=== PATIENT | female | born 1965 | race Asian ===

== ENCOUNTER 2021-08-04 09:27 | Outpatient (CLI) | payer OTHER ==
[2021-08-04 11:49] LABS: BASOPHILS % (AUTO) 0.6 %; EOSINOPHILS # (AUTO) 0.1 10^3/uL (0.0-0.7); EOSINOPHILS % (AUTO) 1.7 %; HCT - HEMATOCRIT 43.5 % (37.0-47.0); HGB - HEMOGLOBIN 14.4 g/dL (12.0-16.0); LYMPHOCYTES # (AUTO) 1.6 10^3/uL (1.5-3.5); LYMPHOCYTES % (AUTO) 45.4 %; MEAN CORPUSCULAR HEMOGLOBIN 31.4 pg (27.0-31.0); MEAN CORPUSCULAR HGB CONC 33.1 g/dL (32.0-36.0); MEAN PLATELET VOLUME 10.7 fL (7.9-10.8); MONOCYTES # (AUTO) 0.3 10^3/uL (0.0-1.0); NEUTROPHILS # (AUTO) 1.5 10^3/uL (1.5-6.6); PLT - PLATELET COUNT 251 10^3/uL (130-450); RED BLOOD COUNT 4.58 10^6/uL (4.20-5.40); WHITE BLOOD COUNT 3.5 x10^3/uL (4.8-10.8)
[2021-08-04 11:58] LABS: ALBUMIN 4.8 g/dL (3.2-5.5); ALBUMIN/GLOBULIN RATIO 1.7 (1.0-2.2); ALKALINE PHOSPHATASE 46 IU/L (42-121); ALT ALANINE AMINOTRANSFERASE 17 IU/L (10-60); AST ASPARTATE AMINOTRANSFERASE 18 IU/L (10-42); BUN - BLOOD UREA NITROGEN 15 mg/dL (6-20); CALCIUM 9.6 mg/dL (8.5-10.3); CARBON DIOXIDE - CO2 28 mmol/L (21-32); CHLORIDE 99 mmol/L (101-111); CHOL/HDL RATIO 2.3 (<4.4); CHOLESTEROL 269 mg/dL; CREATININE 0.7 mg/dL (0.4-1.0); GFR - MDRD 87 (>89); GLUCOSE 100 mg/dL (70-100); HDL CHOLESTEROL 117 mg/dL; LDL CHOLESTEROL,CALCULATED 140 mg/dL; LDL/HDL RATIO 1.2 (<4.4); POTASSIUM 4.2 mmol/L (3.5-5.0); SODIUM 136 mmol/L (135-145); TOTAL PROTEIN 7.6 g/dL (6.7-8.2); TRIGLYCERIDES 62 mg/dL; VLDL CHOLESTEROL 12 mg/dL
[2021-08-04 12:27] LABS: THYROID STIMULATING HORMONE 1.75 uIU/mL (0.34-5.60)
[2021-08-06 12:21] LABS: HEPATITIS C ANTIBODY NON-REACTIVE (NON-REACTIVE)
== END 2021-08-04 09:28 | disposition home or self-care (01) ==
LOC: LAB.N 09:27
PROVIDERS: ATTEND Registered Nurse
DX: Z00.00 Encounter for general adult medical examination without abnormal findings (principal); Z13.228 Encounter for screening for other metabolic disorders; Z13.220 Encounter for screening for lipoid disorders; Z13.29 Encounter for screening for other suspected endocrine disorder; Z13.0 Encounter for screening for diseases of the blood and blood-forming organs and certain disorders involving the immune mechanism
CPT/HCPCS: 36415; 80053; 80061; 83721; 84443; 85025; 86803

== ENCOUNTER 2021-10-17 08:00 | Outpatient (CLI) | payer OTHER ==
[2021-10-17 13:44] LABS: BASOPHILS % (AUTO) 0.6 %; EOSINOPHILS # (AUTO) 0.1 10^3/uL (0.0-0.7); EOSINOPHILS % (AUTO) 1.5 %; HCT - HEMATOCRIT 41.6 % (37.0-47.0); HGB - HEMOGLOBIN 13.7 g/dL (12.0-16.0); LYMPHOCYTES # (AUTO) 1.4 10^3/uL (1.5-3.5); LYMPHOCYTES % (AUTO) 42.2 %; MEAN CORPUSCULAR HEMOGLOBIN 31.1 pg (27.0-31.0); MEAN CORPUSCULAR HGB CONC 32.9 g/dL (32.0-36.0); MEAN CORPUSCULAR VOLUME 94.5 fL (81.0-99.0); MEAN PLATELET VOLUME 10.3 fL (7.9-10.8); MONOCYTES # (AUTO) 0.3 10^3/uL (0.0-1.0); NEUTROPHILS # (AUTO) 1.6 10^3/uL (1.5-6.6); NEUTROPHILS % (AUTO) 47.4 %; PLT - PLATELET COUNT 297 10^3/uL (130-450); RED CELL DISTRIBUTION WIDTH 11.9 % (12.0-15.0); WHITE BLOOD COUNT 3.4 x10^3/uL (4.8-10.8)
[2021-10-17 14:00] LABS: ALBUMIN 4.5 g/dL (3.2-5.5); ALBUMIN/GLOBULIN RATIO 1.8 (1.0-2.2); BILIRUBIN,TOTAL 0.9 mg/dL (0.2-1.0); CALCIUM 9.2 mg/dL (8.5-10.3); CREATININE 0.7 mg/dL (0.4-1.0); POTASSIUM 4.1 mmol/L (3.5-5.0)
== END 2021-10-17 23:59 | disposition home or self-care (01) ==
LOC: LAB.N 08:00
PROVIDERS: ATTEND Family Medicine
DX: R10.32 Left lower quadrant pain (principal)
CPT/HCPCS: 36415; 80053; 85025

== ENCOUNTER 2021-11-02 16:07 | Outpatient (CLI) | payer OTHER ==
--- NOTE | 2021-11-04 11:19 | Ultrasound Report ---
PROCEDURE: Pelvic w/Transvaginal INDICATIONS: LEFT LOWER QUAD ABD PAIN TECHNIQUE: Real-time scanning was performed of the pelvic organs, with image documentation. Additional endovagi nal scanning was necessary due to incomplete visualization of the adnexal and endometrial structures by transabdominal scanning. COMPARISON: None. FINDINGS: Limited scanning through the kidneys shows no hydronephrosis. No pathologic free abdominal or pelvic fluid. Uterus: Uterus is anteverted measuring 5.7 x 3.4 x 5.1 cm. The endometrium measures 2.3 mm in combi jaylene thickness. There are multiple uterine fibroids. There is a 2.3 x 2.2 x2.1 cm subserosal fibroid in the right lateral uterine wall. A 1.3 x 0.8 x 1.4 cm intramural fibroid is seen in the anterior uterine wall at midline. A 1.2 x 1.0 x 1.3 cm intramura l fibroid is seen in the left lateral uterine wall. There is a 0.9 x 0.8 x 1.0 cm subserosal fibroid in the posterior uterine wall at midline. Ovaries: Right ovary measures 1.2 x 0.9 x 1.1 cm with an estimated volume of 0.6 cc. Left ovary jose g ures 1.5 x 1.6 x 1.1 cm with an history volume of 1.4 cc. Cervix: Note is made of nabothian cysts. Bladder: Within normal. Other: No free pelvic fluid. IMPRESSION: 1. Multiple small uterine leiomyomas. 2. Normal ovaries. Reviewed by: Yeimi De Jesus MD on 11/04/2021 11:18 AM PDT Approved by: Yeimi De Jesus MD on 11/04/2021 11:18 AM PDT Station ID: [id number]
== END 2021-11-02 16:08 | disposition home or self-care (01) ==
LOC: DI 16:07
PROVIDERS: ATTEND Family Medicine
DX: D25.2 Subserosal leiomyoma of uterus (principal); D25.1 Intramural leiomyoma of uterus

== ENCOUNTER 2021-11-08 16:40 | Emergency (ER) | payer OTHER ==
--- NOTE | 2021-11-08 16:58 | ED Physician Documentation ---
PD HPI ABD PAIN - Stated complaint Stated Complaint: ABD PX - Chief complaint Chief Complaint: Abd Pain - History obtained from History obtained from: Patient - History of Present Illness Timing - onset: How many months ago (1) Timing - duration: Months (1) Timing - details: Intermittant Quality: Aching, Sharp, Pain Location: LLQ (and left inguinal area) Improved by: BM Worsened by: Moving (particularly heavier lifting or exercises such as weighted squats, running.), Palpation Associated symptoms: No: Fever, Nausea, Vomiting, Diarrhea, Constipation (not constipated per se, but had not had BM for 2 days and so took stoool softener yesterday with moderate BM today.), Melena, Dysuria, Loss of appetite Similar symptoms before: Has not had sx before Recently seen: Clinic (seen by primary care and had outpatient U/S pelvis, without abnormalities to account for the pain. Did have uterine fibroids. No adnexal abnormalities.) Review of Systems Constitutional: denies: Fever, Chills Nose: denies: Rhinorrhea / runny nose, Congestion Throat: denies: Sore throat Respiratory: denies: Cough GI: reports: Abdominal Pain (just the left inguinal area.). denies: Nausea, Vomiting : denies: Dysuria, Frequency, Hematuria, Discharge Skin: denies: Rash Musculoskeletal: denies: Back pain Neurologic: denies: Focal weakness, Numbness PD PAST MEDICAL HISTORY - Past Medical History Cardiovascular: None Respiratory: None Endocrine/Autoimmune: None - Allergies Allergies/Adverse Reactions: Allergies Allergy/AdvReac Type Severity Reaction Status Date / Time No Known Drug Allergies Allergy Verified 11/08/21 16:49 - Living Situation Living Situation: reports: With spouse/s.o. Living Arrangement: reports: At home, Other (she does exercise vigorously frequently through the week. No noted lumps at inguinal area with exercise. ) - Social History Does the pt smoke?: No Does the pt have substance abuse?: No PD ED PE NORMAL - Vitals Vital signs reviewed: Yes - General General: Alert and oriented X 3, No acute distress, Well developed/nourished (appears with good general muscle definition c/w strength training and exercise. ) - HEENT HEENT: Pharynx benign - Neck Neck: Supple, no meningeal sign, No adenopathy - Cardiac Cardiac: RRR, No murmur - Respiratory Respiratory: Clear bilaterally - Abdomen Abdomen: Normal bowel sounds, Soft, Non distended, No organomegaly, Other (left inguinal area with tenderness. No protrusions with abd tightening. No nodes nor masses. ) - Female Female : Deferred - Rectal Rectal: Deferred - Back Back: No CVA TTP - Derm Derm: Normal color, Warm and dry - Extremities Extremities: No tenderness to palpate, Normal ROM s pain - Neuro Neuro: Alert and oriented X 3, No motor deficit, No sensory deficit, Normal speech Results - Vitals Vitals: Vital Signs - 24 hr 11/08/21 11/08/21 16:49 18:53 Temperature 36.5 C Heart Rate 65 57 L Respiratory 16 14 Rate Blood Pressure 121/80 108/74 O2 Saturation 100 99 Oxygen O2 Source Room air - Labs Labs: Laboratory Tests 11/08/21 11/08/21 11/08/21 17:20 17:20 18:25 WBC 5.0 RBC 4.21 Hgb 13.4 Hct 39.2 MCV 93.1 MCH 31.8 H MCHC 34.2 RDW 11.8 L Plt Count 265 MPV 9.5 Neut # (Auto) 2.5 Lymph # (Auto) 2.1 [place] # (Auto) 0.3 Eos # (Auto) 0.1 Baso # (Auto) 0.0 Absolute Nucleated RBC 0.00 Nucleated RBC % 0.0 Sodium 138 Potassium 3.6 Chloride 102 Carbon Dioxide 26 Anion Gap 10.0 BUN 17 Creatinine 0.7 Estimated GFR (MDRD) 87 L Glucose 85 Calcium 9.1 Total Bilirubin 0.6 AST 18 ALT 17 Alkaline Phosphatase 43 Total Protein 7.1 Albumin 4.5 Globulin 2.6 Albumin/Globulin Ratio 1.7 Lipase 40 Urine Color YELLOW Urine Clarity CLEAR Urine pH 6.0 Ur Specific [place] <=1.005 Urine Protein NEGATIVE Urine Glucose (UA) NEGATIVE Urine Ketones NEGATIVE Urine Occult Blood NEGATIVE Urine Nitrite NEGATIVE Urine Bilirubin NEGATIVE Urine Urobilinogen 0.2 (NORMAL) Ur Leukocyte Esterase NEGATIVE Ur Microscopic Review NOT INDICATED Urine Culture Comments NOT INDICATED Urine HCG, Qual NEGATIVE - Rads (name of study) abd/pelvic CT Radiology: Prelim report reviewed (no acute process), See rad report PD MEDICAL DECISION MAKING - ED course Complexity details: reviewed results (normal labs/CT. presume inguinal canal strain, without hernia on exam. ), re-evaluated patient, considered differential (pain with tenderness at inguinal canal, without mass upon abd tightening. No inguinal hernia nor nodes felt. Tenderness is noted at inguinal canal area but also LLQ. ), d/w patient Departure - Departure Disposition: 01 Home, Self Care Clinical Impression: Left inguinal pain Ilio-inguinal strain Qualifiers: Encounter type: initial encounter Qualified Code(s): S39.011A - Strain of muscle, fascia and tendon of abdomen, initial encounter Condition: Stable Record reviewed to determine appropriate education?: Yes Instructions: ED Strain Groin Follow-Up: Titi Oro MD [Primary Care Provider] - Jass Arrington MD [Provider Admit Priv/Credential] - Comments: Your urine test, blood test, CT scan do not show any acute cause for the pain. Things that would not show on these tests would be likely muscular through the inguinal area (ilioinguinal groin strain). I would suggest light activity and mostly gliding such as walking or smooth stretches without big steps, and no squats or running that would put more strain on the inguinal ligaments. I would do this later activity for the next 7 to 10 days. In combination with this I would suggest regular anti-inflammatories such as naproxen [id number] tablets 2 tablets twice daily for the next 10 days. Ice or cool towels to the inguinal area after light activity or at the end of the day. Recheck with your primary or orthopedics if not improved over the next 7-10. Discharge Date/Time: 11/08/21 18:54
--- OUTSIDE RECORDS SUMMARY | 2021-11-08 16:59 | EXTERNAL MEDICAL SUMMARY RPT | Continuity of Care Document ---
:1965 Author Organization [facility] Address [address] [place] [address] Phone Care Team Providers Name Role Phone TANIA, Elsy Catherine Unavailable Unavailable Allergies No information. Encounters No information. Medications No information. Problems date description facility 20211017 US PELVIC/TRANSVAGINAL All 20211017 Left lower quadrant pain All 20211017 COMPREHENSIVE METABOLIC PANEL All 20211017 CBC W/Diff/Plt All 20211017 Abdominal pain, left lower quadrant Al l Procedures date description facility 20211017 CBC W/Diff/Plt All 20211017 POC HCG All 20211017 POC URINALYSIS DIP All 20211017 COMPREHENSIVE METABOLIC PANEL All Results test status date ordered by attending specimen joyce e urea_nitrogen_blood unknown 20211017 unknown unknown unk nown Erythrocytes_volume_in unknown 20211017 unknown unknown unknown _Blood_by_Automated_cou nt Erythrocyte_distributi unknown 20211017 unknown unknown unknown on_width_Ratio_by_Autom ated_count MCV_Entitic_volume_by_ unknown 12052858 unknown unknown unknown Automated_count MCH_Entitic_mass_by_Au unknown 31576196 unknown unknown unknown tomated_count Platelets_volume_in_Bl unknown 95389891 unknown unknown unknown ood_by_Automated_count Platelet_mean_volume_E unknown 41639719 unknown unknown unknown ntitic_volume_in_Blood_ by_ReeErin neutrophil_count_blood unknown 57268723 unknown unknown unknown monocyte_count_blood unknown 84166352 unknown unknown un known lymphocyte_count_blood unknown 73039421 unknown unknown unknown Hemoglobin_Mass_volume unknown 95761252 unknown unknown unknown _in_Blood eosinophil_count_blood unknown 18221082 unknown unknown unknown Basophils_volume_in_Bl unknown 26828587 unknown unknown unknown ood_by_Manual_count leukocyte_count_blood unknown 50731971 unknown unknown u nknown erythrocyte_RBC_count unknown 65649586 unknown unknown u nknown Leukocytes_volume_in_B unknown 40489892 unknown unknown unknown lood_by_Automated_count Glomerular_Filtration_ unknown 33620629 unknown unknown unknown rate platelet_count unknown 37458392 unknown unknown unknown hemoglobin_blood unknown 46540651 unknown unknown unknow n hematocrit_blood unknown 44068404 unknown unknown unknow n potassium_blood unknown 59859054 unknown unknown unknown Urobilinogen_Presence_ unknown 80041579 unknown unknown unknown in_Urine_by_Test_strip Specific_gravity_of_Ur unknown 16908249 unknown unknown unknown ine_by_Test_strip pH_of_Urine_by_Test_st unknown 72264102 unknown unknown unknown rip Nitrite_Presence_in_Ur unknown 90788082 unknown unknown unknown ine_by_Test_strip Leukocyte_esterase_Pre unknown 98750902 unknown unknown unknown sence_in_Urine_by_Test_ strip Ketones_Mass_volume_in unknown 87886757 unknown unknown unknown _Urine_by_Test_strip Glucose_Mass_volume_in unknown 94483806 unknown unknown unknown _Urine_by_Test_strip Color_of_Urine unknown 56019802 unknown unknown unknown Bilirubin.total_Presen unknown 81457883 unknown unknown unknown ce_in_Urine_by_Test_str ip Appearance_of_Urine unknown 09537492 unknown unknown unk nown Glomerular_filtration_r unknown 99953826 unknown unknown unknown ate_1.73_sq_M.predicted _among_non-blacks_Volum e_Rate_Area_in_Serum_Pl asma_or_Blood_by_Creati nine-based_formula_MDRD _ urinalysis_routine unknown 96169585 unknown unknown unkn own Hematocrit_Volume_Frac unknown 52204621 unknown unknown unknown tion_of_Blood_by_Automa ted_count bilirubin_serum_total unknown 91481659 unknown unknown u nknown alanine_aminotransfera unknown 53020880 unknown unknown unknown se_SGPT_serum carbon_dioxide_serum_t unknown 47571036 unknown unknown unknown otal aspartate_aminotransfe unknown 10416375 unknown unknown unknown rase_SGOT_serum protein_total_serum unknown 05311876 unknown unknown unk nown blood_glucose unknown 27857971 unknown unknown unknown potassium_blood unknown 81571780 unknown unknown unknown appearance_urine unknown 23999308 unknown unknown unknow n leukocyte_esterase_uri unknown 29005545 unknown unknown unknown ne_by_dipstick urobilinogen_urine_sem unknown 60243596 unknown unknown unknown iquantitative_dipstick_ specific_gravity_urine unknown 74787712 unknown unknown unknown pH_urine_semiquantitat unknown 68443968 unknown unknown unknown linh nitrite_urine_semiquan unknown 23169814 unknown unknown unknown titative ketones_urine_by_test_ unknown 84686521 unknown unknown unknown strip bilirubin_urine unknown 28694767 unknown unknown unknown mean_corpuscular_volum unknown 03674338 unknown unknown unknown e_RBC Urea_nitrogen_Mass_vol unknown 90298813 unknown unknown unknown ume_in_Serum_or_Plasma globulin_serum unknown 17722634 unknown unknown unknown alkaline_phosphatase_s unknown 89353784 unknown unknown unknown juan Sodium_Moles_volume_in unknown 74207557 unknown unknown unknown _Serum_or_Plasma Protein_Mass_volume_in unknown 67919144 unknown unknown unknown _Serum_or_Plasma eosinophil_count_blood unknown 58086565 unknown unknown unknown anion_gap_serum unknown 05088299 unknown unknown unknown mean_platelet_volume unknown 57980223 unknown unknown un known urine_color unknown 77699436 unknown unknown unknown human_chorionic_gonado unknown 87140319 unknown unknown unknown tropin_urine_qualitativ e_urine_pregnancy_test_ basophil_count_blood unknown 92401759 unknown unknown un known monocyte_count_blood unknown 67298830 unknown unknown un known lymphocyte_count_blood unknown 79772591 unknown unknown unknown neutrophil_count_blood unknown 86618922 unknown unknown unknown Glucose_Mass_volume_in unknown 04262711 unknown unknown unknown _Serum_or_Plasma Globulin_Mass_volume_i unknown 26937309 unknown unknown unknown n_Serum Creatinine_Mass_volume unknown 39025380 unknown unknown unknown _in_Serum_or_Plasma Choriogonadotropin_pre unknown 75097407 unknown unknown unknown gnancy_test_Presence_in _Urine Chloride_Moles_volume_ unknown 81263925 unknown unknown unknown in_Serum_or_Plasma carbon_dioxide_serum_t unknown 60193909 unknown unknown unknown otal Calcium_Moles_volume_i unknown 82556520 unknown unknown unknown n_Serum_or_Plasma albumin_serum unknown 65085321 unknown unknown unknown Bilirubin.total_Mass_v unknown 71922230 unknown unknown unknown olume_in_Serum_or_Plasm a Aspartate_aminotransfe unknown 15133727 unknown unknown unknown rase_Enzymatic_activity _volume_in_Serum_or_Pla sma Anion_gap_4_in_Serum_o unknown 91419947 unknown unknown unknown r_Plasma creatinine_serum unknown 65897828 unknown unknown unknow n Alkaline_phosphatase_E unknown 90591934 unknown unknown unknown nzymatic_activity_volum e_in_Blood Albumin_Globulin_Mass_ unknown 30354808 unknown unknown unknown Ratio_in_Serum_or_Plasm a Albumin_Presence_in_Ur unknown 37735289 unknown unknown unknown ine Albumin_Mass_volume_in unknown 43777225 unknown unknown unknown _Serum_or_Plasma Alanine_aminotransfera unknown 43368124 unknown unknown unknown se_Enzymatic_activity_v olume_in_Serum_or_Plasm a mean_corpuscular_hemog unknown 09993081 unknown unknown unknown lobin_concentration_rbc RBC_urine_dipstick unknown 68718373 unknown unknown unkn own sodium_serum unknown 57694992 unknown unknown unknown albumin_globulin_ratio unknown 11591980 unknown unknown unknown _serum Erythrocytes_area_in_U unknown 38433951 unknown unknown unknown rine_sediment_by_Micros copy_high_power_field chloride_serum unknown 47929844 unknown unknown unknown glucose_urine_semiquan unknown 47968838 unknown unknown unknown titative protein_urine_semiquan unknown 69146146 unknown unknown unknown titative_dipstick_ Urine_HCG_Exp_Date_CLI unknown 81590263 unknown unknown unknown A_Waived_ Urine_HCG_Lot_Number_C unknown 24669071 unknown unknown unknown LIA_Waived_ calcium_serum unknown 30028757 unknown unknown unknown mean_corpuscular_hemog unknown 53723838 unknown unknown unknown lobin_RBC red_blood_cell_distrib unknown 07039209 unknown unknown unknown ution_width DIPSTICK_URINE_STRIP_L unknown 79329562 unknown unknown unknown OT_NUMBER T unknown 99904367 unknown unknown unknown T unknown 99318593 unknown unknown unknown T unknown 84969127 unknown unknown unknown T unknown 79934392 unknown unknown unknown T unknown 45496228 unknown unknown unknown T unknown 42876952 unknown unknown unknown NEUTROPHILS_AUTO_ unknown 30274413 unknown unknown unkno wn T unknown 25200618 unknown unknown unknown T unknown 93033510 unknown unknown unknown T unknown 04560164 unknown unknown unknown MONOCYTES_AUTO_ unknown 95670279 unknown unknown unknown T unknown 32311180 unknown unknown unknown T unknown 30268711 unknown unknown unknown T unknown 80451969 unknown unknown unknown T unknown 87833781 unknown unknown unknown LYMPHOCYTES_AUTO_ unknown 88567942 unknown unknown unkno wn T unknown 31431963 unknown unknown unknown T unknown 76009549 unknown unknown unknown T unknown 45072281 unknown unknown unknown T unknown 98732465 unknown unknown unknown T unknown 02961260 unknown unknown unknown T unknown 86698688 unknown unknown unknown T unknown 81198832 unknown unknown unknown GFR_-_MDRD unknown 60049584 unknown unknown unknown T unknown 26642101 unknown unknown unknown EOSINOPHILS_AUTO_ unknown 83970373 unknown unknown unkno wn T unknown 39370475 unknown unknown unknown T unknown 71530575 unknown unknown unknown T unknown 03502011 unknown unknown unknown T unknown 84771769 unknown unknown unknown T unknown 58813408 unknown unknown unknown T unknown 21425765 unknown unknown unknown BILIRUBIN_TOTAL unknown 86110041 unknown unknown unknown BASOPHILS_AUTO_ unknown 89051213 unknown unknown unknown T unknown 07916466 unknown unknown unknown T unknown 93220631 unknown unknown unknown T unknown 94530416 unknown unknown unknown T unknown 27595365 unknown unknown unknown ALT_ALANINE_AMINOTRANS unknown 91427002 unknown unknown unknown FERASE ALKALINE_PHOSPHATASE unknown 80234972 unknown unknown un known T unknown 66033869 unknown unknown unknown T unknown 28073419 unknown unknown unknown ALBUMIN_GLOBULIN_RATIO unknown 43488357 unknown unknown unknown facility observation status value reference units lab abnor mal line range code notes All urea_nitroge unknown 17 unknown mg/dL _9 unknown unknown n_blood All Erythrocytes unknown 4.40 10 unknown _789-8 unknow n unknown _volume_in_Bl 6/UL ood_by_Automa ted_count All Erythrocyte_ unknown 11.9 unknown % _788-0 unknown unknown distribution_ width_Ratio_b y_Automated_c ount All MCV_Entitic_ unknown 94.5 unknown fL _787-2 unknown unknown volume_by_Aut omated_count All MCH_Entitic_ unknown 31.1 unknown pg _785-6 unknown unknown mass_by_Autom ated_count All Platelets_vo unknown 297 10 unknown _777-3 unknown unknown lume_in_Blood 3/UL _by_Automated _count All Platelet_mea unknown 10.3 unknown fL _776-5 unknown unknown n_volume_Enti tic_volume_in _Blood_by_Ree s-[place] All neutrophil_c unknown 1.6 10 unknown _752-6 unknown unknown ount_blood 3/UL All monocyte_cou unknown 0.3 10 unknown _743-5 unknown unknown nt_blood 3/UL All lymphocyte_c unknown 1.4 10 unknown _732-8 unknown unknown ount_blood 3/UL All Hemoglobin_M unknown 13.7 unknown g/dL _718-7 unknown unknown ass_volume_in _Blood All eosinophil_c unknown 0.1 10 unknown _712-0 unknown unknown ount_blood 3/UL All Basophils_vo unknown 0.0 10 unknown _705-4 unknown unknown lume_in_Blood 3/UL _by_Manual_co unt All leukocyte_co unknown 3.4 X10 unknown _68 unknow n unknown unt_blood 3/UL All erythrocyte_ unknown 4.40 10 unknown _67 unknow n unknown RBC_count 6/UL All Leukocytes_v unknown 3.4 X10 unknown _6690-2 unkno wn unknown olume_in_Bloo 3/UL d_by_Automate d_count All Glomerular_F unknown 87 unknown mL/min _66455 unknown unknown iltration_rat e All platelet_cou unknown 297 10 unknown _66 unknown unknown nt 3/UL All hemoglobin_b unknown 13.7 unknown g/dL _65 unknown unknown lood All hematocrit_b unknown 41.6 unknown % _64 unknown unknown lood All potassium_bl unknown 4.1 unknown meq/L _6298-4 unknow n unknown ood All Urobilinogen unknown negative unknown _5818-0 unkn own unknown _Presence_in_ Urine_by_Test _strip All Specific_gra unknown 1.010 unknown _5811-5 unknow n unknown vity_of_Urine _by_Test_stri p All pH_of_Urine_ unknown 6.5 unknown _5803-2 unknow n unknown by_Test_strip All Nitrite_Pres unknown negative unknown _5802-4 unkn own unknown ence_in_Urine _by_Test_stri p All Leukocyte_es unknown negative unknown _5799-2 unkn own unknown terase_Presen ce_in_Urine_b y_Test_strip All Ketones_Mass unknown negative unknown _5797-6 unkn own unknown _volume_in_Ur ine_by_Test_s trip All Glucose_Mass unknown negative unknown _5792-7 unkn own unknown _volume_in_Ur ine_by_Test_s trip All Color_of_Uri unknown yellow unknown _5778-6 unknow n unknown ne All Bilirubin.to unknown negative unknown _5770-3 unkn own unknown tal_Presence_ in_Urine_by_T est_strip All Appearance_o unknown clear unknown _5767-9 unknow n unknown f_Urine All Glomerular_fi unknown 87 unknown mL/min _48642- unknow n unknown ltration_rate 3 _1.73_sq_M.pr edicted_among _non-blacks_V olume_Rate_Ar ea_in_Serum_P lasma_or_Bloo d_by_Creatini ne-based_form ula_MDRD_ All urinalysis_r unknown Clean unknown _47 unknown unknown outine Catch All Hematocrit_V unknown 41.6 unknown % _4544-3 unknow n unknown olume_Fractio n_of_Blood_by _Automated_co unt All bilirubin_se unknown 0.9 unknown mg/dL _43 unknown unknown rum_total All alanine_amin unknown 25 unknown U/L _40 unknown unknown otransferase_ SGPT_serum All carbon_dioxi unknown 28 unknown mmol/L _3962 unknown unknown de_serum_tota l All aspartate_am unknown 22 unknown U/L _39 unknown unknown inotransferas e_SGOT_serum All protein_tota unknown 7.0 unknown g/dL _36 unknown unknown l_serum All blood_glucos unknown 89 unknown mg/dL _3565 unknown unknown e All potassium_bl unknown 4.1 unknown meq/L _3483 unknown unknown ood All appearance_u unknown clear unknown _328 unknown unknown rine All leukocyte_es unknown negative unknown _327 unkno wn unknown terase_urine_ by_dipstick All urobilinogen unknown negative unknown _326 unkno wn unknown _urine_semiqu antitative_di pstick_ All specific_gra unknown 1.010 unknown _325 unknown unknown vity_urine All pH_urine_sem unknown 6.5 unknown _324 unknown unknown iquantitative All nitrite_urin unknown negative unknown _323 unkno wn unknown e_semiquantit ative All ketones_urin unknown negative unknown _322 unkno wn unknown e_by_test_str ip All bilirubin_ur unknown negative unknown _319 unkno wn unknown ine All mean_corpusc unknown 94.5 unknown fL _315 unknown unknown ular_volume_R BC All Urea_nitroge unknown 17 unknown mg/dL _3094-0 unknow n unknown n_Mass_volume _in_Serum_or_ Plasma All globulin_ser unknown 2.5 unknown _3059 unknown unknown um All alkaline_pho unknown 42 unknown U/L _3 unknown unknown sphatase_seru m All Sodium_Moles unknown 139 unknown mmol/L _2951-2 unknow n unknown _volume_in_Se rum_or_Plasma All Protein_Mass unknown 7.0 unknown g/dL _2885-2 unknow n unknown _volume_in_Se rum_or_Plasma All eosinophil_c unknown 0.1 10 unknown _285 unknown unknown ount_blood 3/UL All anion_gap_se unknown 8.0 unknown _279 unknown unknown rum All mean_platele unknown 10.3 unknown fL _2784 unknown unknown t_volume All urine_color unknown yellow unknown _2751 unknown unknown All human_chorio unknown Negative unknown _2578 unkno wn unknown nic_gonadotro pin_urine_qua litative_urin e_pregnancy_t est_ All basophil_cou unknown 0.0 10 unknown _2427 unknown unknown nt_blood 3/UL All monocyte_cou unknown 0.3 10 unknown _2422 unknown unknown nt_blood 3/UL All lymphocyte_c unknown 1.4 10 unknown _2420 unknown unknown ount_blood 3/UL All neutrophil_c unknown 1.6 10 unknown _2418 unknown unknown ount_blood 3/UL All Glucose_Mass unknown 89 unknown mg/dL _2345-7 unknow n unknown _volume_in_Se rum_or_Plasma All Globulin_Mas unknown 2.5 unknown _2336-6 unknow n unknown s_volume_in_S juan All Creatinine_M unknown 0.7 unknown mg/dL _2160-0 unknow n unknown ass_volume_in _Serum_or_Pla sma All Choriogonado unknown Negative unknown _6-3 unkn own unknown tropin_pregna ncy_test_Pres ence_in_Urine All Chloride_Mol unknown 103 unknown mmol/L _2074-0 unknow n unknown es_volume_in_ Serum_or_Plas ma All carbon_dioxi unknown 28 unknown mmol/L _2027- unknow n unknown de_serum_tota l All Calcium_Mole unknown 9.2 unknown mg/dL _1999- unknow n unknown s_volume_in_S erum_or_Plasm a All albumin_seru unknown 4.5 unknown g/dL _2 unknown unknown m All Bilirubin.to unknown 0.9 unknown mg/dL _1974- unknow n unknown tal_Mass_volu me_in_Serum_o r_Plasma All Aspartate_am unknown 22 unknown U/L _1919-8 unknow n unknown inotransferas e_Enzymatic_a ctivity_volum e_in_Serum_or _Plasma All Anion_gap_4_ unknown 8.0 unknown _1863-0 unknow n unknown in_Serum_or_P lasma All creatinine_s unknown 0.7 unknown mg/dL _18 unknown unknown juan All Alkaline_pho unknown 42 unknown U/L _1783-0 unknow n unknown sphatase_Enzy matic_activit y_volume_in_B lood All Albumin_Glob unknown 1.8 unknown _1759-0 unknow n unknown ulin_Mass_Rat io_in_Serum_o r_Plasma All Albumin_Pres unknown negative unknown _1753-3 unkn own unknown ence_in_Urine All Albumin_Mass unknown 4.5 unknown g/dL _1751-7 unknow n unknown _volume_in_Se rum_or_Plasma All Alanine_amin unknown 25 unknown U/L _1742-6 unknow n unknown otransferase_ Enzymatic_act ivity_volume_ in_Serum_or_P lasma All mean_corpusc unknown 32.9 unknown g/dL _17029 unknown unknown ular_hemoglob in_concentrat ion_rbc All RBC_urine_di unknown non-hemol unknown _170000 unk nown unknown pstick yzed trace 5 All sodium_serum unknown 139 unknown mmol/L _159 unknown unknown All albumin_glob unknown 1.8 unknown _146 unknown unknown ulin_ratio_se rum All Erythrocytes unknown non-hemol unknown _13945- unk nown unknown _area_in_Urin yzed trace 1 e_sediment_by _Microscopy_h igh_power_fie ld All chloride_ser unknown 103 unknown mmol/L _13 unknown unknown um All glucose_urin unknown negative unknown _123 unkno wn unknown e_semiquantit ative All protein_urin unknown negative unknown _118 unkno wn unknown e_semiquantit ative_dipstic k_ All Urine_HCG_Ex unknown 09/07/22 unknown _114941 unkno wn unknown p_Date_CLIA_W aived_ All Urine_HCG_Lo unknown 6057162 unknown _114940 unkno wn unknown t_Number_CLIA _Waived_ All calcium_seru unknown 9.2 unknown mg/dL _11 unknown unknown m All mean_corpusc unknown 31.1 unknown pg _1031 unknown unknown ular_hemoglob in_RBC All red_blood_ce unknown 11.9 unknown % _1030 unknown unknown ll_distributi on_width All DIPSTICK_URI unknown 444037 unknown _101400 unknow n unknown NE_STRIP_LOT_ NUMBER All T unknown 3.4 X10 unknown WBC unknown unk nown 3/UL All T unknown 0.9 unknown mg/dL TOTAL_B unknown unk nown ROSE All T unknown 11.9 unknown % RDW unknown unkn own All T unknown 4.40 10 unknown RBC unknown unk nown 6/UL All T unknown 7.0 unknown g/dL PRO_TOT unknown unk nown AL All T unknown 297 10 unknown PLT unknown unkn own 3/UL All NEUTROPHILS_ unknown 1.6 10 unknown NE_ unknown unknown AUTO_ 3/UL All T unknown 1.6 10 unknown NEUT_AU unknown unk nown 3/UL TO_ All T unknown 139 unknown mmol/L NA unknown unkn own All T unknown 10.3 unknown fL MPV unknown unkn own All MONOCYTES_AU unknown 0.3 10 unknown MO_ unknown unknown TO_ 3/UL All T unknown 0.3 10 unknown MONO_AU unknown unk nown 3/UL TO_ All T unknown 94.5 unknown fL MCV unknown unkn own All T unknown 32.9 unknown g/dL MCHC unknown unkn own All T unknown 31.1 unknown pg MCH unknown unkn own All LYMPHOCYTES_ unknown 1.4 10 unknown LY_ unknown unknown AUTO_ 3/UL All T unknown 1.4 10 unknown LYMPH_A unknown unk nown 3/UL UTO_ All T unknown 4.1 unknown meq/L K unknown unkn own All T unknown 13.7 unknown g/dL HGB unknown unkn own All T unknown 41.6 unknown % HCT unknown unkn own All T unknown 89 unknown mg/dL GLU unknown unkn own All T unknown 2.5 unknown GLOB unknown unkn own All T unknown 87 unknown mL/min GFR_-_M unknown unk nown DRD All GFR_-_MDRD unknown 87 unknown mL/min GFR unknown unknown All T unknown 8.0 unknown GAP unknown unkn own All EOSINOPHILS_ unknown 0.1 10 unknown EO_ unknown unknown AUTO_ 3/UL All T unknown 0.1 10 unknown EOS_AUT unknown unk nown 3/UL O_ All T unknown 0.7 unknown mg/dL CREAT unknown unkn own All T unknown 28 unknown mmol/L CO2 unknown unkn own All T unknown 103 unknown mmol/L CL unknown unkn own All T unknown 9.2 unknown mg/dL CA unknown unkn own All T unknown 17 unknown mg/dL BUN unknown unkn own All BILIRUBIN_TO unknown 0.9 unknown mg/dL BILIT unknown unknown NESHA All BASOPHILS_AU unknown 0.0 10 unknown BA_ unknown unknown TO_ 3/UL All T unknown 0.0 10 unknown BASO_AU unknown unk nown 3/UL TO_ All T unknown 1.8 unknown A_G_RAT unknown unk nown IO All T unknown 22 unknown U/L AST unknown unkn own All T unknown 25 unknown U/L ALT_SGP unknown unk nown T_ All ALT_ALANINE_ unknown 25 unknown U/L ALT unknown unknown AMINOTRANSFER ASE All ALKALINE_PHO unknown 42 unknown U/L ALP unknown unknown SPHATASE All T unknown 42 unknown U/L ALK_PHO unknown unk nown S All T unknown 4.5 unknown g/dL ALB unknown unkn own All ALBUMIN_GLOB unknown 1.8 unknown AGRATIO unknow n unknown ULIN_RATIO Vital Signs date measurement value source 20211017 weight_standard 134.4 lb 20211017 weight_metric 60.96 kg 20211017 temperature_standard 98 F 20211017 temperature_metric 36.67 C 20211017 respiration_rate 16 /min 20211017 height_standard 64 in 20211017 height_metric 162.56 cm 20211017 heart_rate 60 /min 20211017 BP_systolic 120 mm[Hg] 20211017 BP_diastolic 80 mm[Hg] 20211017 BMI 23.15 kg/m2
[2021-11-08] MEDS ORDERED: SODIUM CHLORIDE 0.9% 1,000 ML IV STA (17:10)
[2021-11-08] MEDS ORDERED: KETOROLAC 15 MG/ML VIAL IVP STA (17:10)
[2021-11-08] MEDS ORDERED: IOPAMIDOL-300 100 ML VIAL ONE (17:24)
[2021-11-08 17:26] LABS: BASOPHILS % (AUTO) 0.4 %; EOSINOPHILS # (AUTO) 0.1 10^3/uL (0.0-0.7); EOSINOPHILS % (AUTO) 1.8 %; HCT - HEMATOCRIT 39.2 % (37.0-47.0); HGB - HEMOGLOBIN 13.4 g/dL (12.0-16.0); LYMPHOCYTES # (AUTO) 2.1 10^3/uL (1.5-3.5); LYMPHOCYTES % (AUTO) 41.5 %; MEAN CORPUSCULAR HEMOGLOBIN 31.8 pg (27.0-31.0); MEAN CORPUSCULAR HGB CONC 34.2 g/dL (32.0-36.0); MEAN CORPUSCULAR VOLUME 93.1 fL (81.0-99.0); MEAN PLATELET VOLUME 9.5 fL (7.9-10.8); MONOCYTES # (AUTO) 0.3 10^3/uL (0.0-1.0); MONOCYTES % (AUTO) 6.4 %; NEUTROPHILS # (AUTO) 2.5 10^3/uL (1.5-6.6); NEUTROPHILS % (AUTO) 49.7 %; PLT - PLATELET COUNT 265 10^3/uL (130-450); RED BLOOD COUNT 4.21 10^6/uL (4.20-5.40); RED CELL DISTRIBUTION WIDTH 11.8 % (12.0-15.0)
[2021-11-08 17:39] LABS: ALBUMIN 4.5 g/dL (3.2-5.5); ALBUMIN/GLOBULIN RATIO 1.7 (1.0-2.2); BILIRUBIN,TOTAL 0.6 mg/dL (0.2-1.0); CALCIUM 9.1 mg/dL (8.5-10.3); CREATININE 0.7 mg/dL (0.4-1.0); POTASSIUM 3.6 mmol/L (3.5-5.0); TOTAL PROTEIN 7.1 g/dL (6.7-8.2)
[2021-11-08] MEDS ORDERED: IOPAMIDOL-300 100 ML VIAL IVP ONE (18:16)
--- NOTE | 2021-11-08 18:24 | CT Report ---
PROCEDURE: Abdomen/Pelvis W INDICATIONS: LLQ/inguinal pain for 3-4 weeks, worse CONTRAST: IV CONTRAST: Isovue 300 ml: 100 PO CONTRAST: *NO PO CONTRAST TECHNIQUE: After the administration of IV contrast, 5 mm thick sections acquired from the diaphragms to the symp hysis. 5 mm thick coronal and sagittal reformats were acquired. For radiation dose reduction, the f ollowing was used: automated exposure control, adjustment of mA and/or kV according to patient size. COMPARISON: Ultrasound dated 11/02/2021 FINDINGS: Image quality: Excellent. ABDOMEN: Lung bases: Lung bases are clear. Heart size is normal. Solid organs: Liver and spleen are normal in size and enhancement. Gallbladder is contracted Bilia ry system is non dilated. Pancreas enhances normally. No adrenal nodules. Kidneys demonstrate norm al size and enhancement, without hydronephrosis. Nonobstructing 2 mm calcification within the left i nterpolar kidney. Peritoneum and bowel: Bowel loops demonstrate normal wall thickness and caliber. No free fluid or a ir. Normal appendix. Nodes and vessels: No retroperitoneal or mesenteric adenopathy by size criteria. Aorta and inferior vena cava are normal in size. Miscellaneous: No ventral hernias. PELVIS: Genitourinary: Bladder wall thickness is normal. Miscellaneous: No inguinal hernias or adenopathy. Bones: No suspicious bony lesions. No vertebral body compression fractures. IMPRESSION: 1. No acute process. 2. Nonobstructing small left renal calcification. 3. Normal appendix. Reviewed by: Demetrice Mireles MD on 11/08/2021 6:23 PM PDT Approved by: Demetrice Mireles MD on 11/08/2021 6:23 PM PDT Station ID: [id number]
[2021-11-08 18:32] LABS: BILIRUBIN,URINE NEGATIVE (NEGATIVE); GLUCOSE, URINE (UA) NEGATIVE (NEGATIVE); KETONES,URINE (UA) NEGATIVE (NEGATIVE); LEUKOCYTE ESTERASE, URINE NEGATIVE (NEGATIVE); NITRITE,URINE NEGATIVE (NEGATIVE); OCCULT BLOOD,URINE NEGATIVE (NEGATIVE); PROTEIN,URINE NEGATIVE (NEGATIVE); UROBILINOGEN,URINE 0.2 (NORMAL) E.U./dL (NORMAL)
[2021-11-08 18:34] LABS: CLARITY,URINE CLEAR (CLEAR); HCG UR QUAL NEGATIVE
[2021-11-08 18:53] VITALS: BP 108/74
== END 2021-11-08 18:54 | disposition home or self-care (01) ==
LOC: ED 16:40
DX: S39.011A Strain of muscle, fascia and tendon of abdomen, initial encounter (principal); X58.XXXA Exposure to other specified factors, initial encounter
CPT/HCPCS: 36415; 74177; 80053; 81003; 81025; 83690; 85025; 96374; 99282; 99284; Q9967; 81001; 87086

== ENCOUNTER 2022-12-07 13:22 | Outpatient (CLI) | payer OTHER ==
[2022-12-07 17:54] LABS: BASOPHILS % (AUTO) 0.6 %; EOSINOPHILS # (AUTO) 0.1 10^3/uL (0.0-0.7); EOSINOPHILS % (AUTO) 2.6 %; HCT - HEMATOCRIT 42.1 % (37.0-47.0); HGB - HEMOGLOBIN 13.7 g/dL (12.0-16.0); LYMPHOCYTES % (AUTO) 57.2 %; MEAN CORPUSCULAR HEMOGLOBIN 31.6 pg (27.0-31.0); MEAN CORPUSCULAR HGB CONC 32.5 g/dL (32.0-36.0); MEAN CORPUSCULAR VOLUME 97.2 fL (81.0-99.0); MEAN PLATELET VOLUME 10.8 fL (7.9-10.8); MONOCYTES # (AUTO) 0.3 10^3/uL (0.0-1.0); MONOCYTES % (AUTO) 8.1 %; NEUTROPHILS # (AUTO) 1.1 10^3/uL (1.5-6.6); NEUTROPHILS % (AUTO) 31.2 %; PLT - PLATELET COUNT 277 10^3/uL (130-450); RED BLOOD COUNT 4.33 10^6/uL (4.20-5.40); RED CELL DISTRIBUTION WIDTH 13.1 % (12.0-15.0); WHITE BLOOD COUNT 3.5 x10^3/uL (4.8-10.8)
[2022-12-07 18:19] LABS: ALBUMIN 4.6 g/dL (3.2-5.5); ALBUMIN/GLOBULIN RATIO 1.7 (1.0-2.2); ALKALINE PHOSPHATASE 46 IU/L (42-121); ALT ALANINE AMINOTRANSFERASE 27 IU/L (10-60); AST ASPARTATE AMINOTRANSFERASE 25 IU/L (10-42); BILIRUBIN,TOTAL 0.9 mg/dL (0.2-1.0); BUN - BLOOD UREA NITROGEN 10 mg/dL (6-20); CALCIUM 9.6 mg/dL (8.5-10.3); CARBON DIOXIDE - CO2 30 mmol/L (21-32); CHLORIDE 104 mmol/L (101-111); CHOL/HDL RATIO 1.9 (<4.4); CHOLESTEROL 230 mg/dL; CREATININE 0.8 mg/dL (0.4-1.0); GFR - MDRD 74 (>89); GLUCOSE 102 mg/dL (70-100); HDL CHOLESTEROL 122 mg/dL; POTASSIUM 4.3 mmol/L (3.5-5.0); SODIUM 142 mmol/L (135-145); TOTAL PROTEIN 7.3 g/dL (6.7-8.2); TRIGLYCERIDES 33 mg/dL
== END 2022-12-07 13:23 | disposition home or self-care (01) ==
LOC: LAB.N 13:22
PROVIDERS: ATTEND Nurse Practitioner
DX: Z00.00 Encounter for general adult medical examination without abnormal findings (principal); Z13.89 Encounter for screening for other disorder; Z13.220 Encounter for screening for lipoid disorders
CPT/HCPCS: 36415; 80053; 80061; 83721; 85025

== ENCOUNTER 2022-12-27 10:44 | Outpatient (CLI) | payer OTHER ==
--- NOTE | 2023-01-03 09:52 | Mammography Report ---
BILATERAL DIGITAL SCREENING MAMMOGRAM 3D/2D: 12/27/2022 CLINICAL: Routine screening. No prior exams were available for comparison. Both breasts are extremely dense, which lowers the sensitivity of mammography (category d />75% gland ular tissue). No significant masses, calcifications, or other findings are seen in either breast. IMPRESSION: NEGATIVE There is no mammographic evidence of malignancy. A 1 year screening mammogram is recommended. Based on Tyrer-Cuzick model (a risk assessment model), the patient's lifetime risk is 25.2% and her 1 0 year risk is 8.2%. If a patient has an elevated risk, a more comprehensive evaluation should be con sidered and/or a referral to a genetic counselor. The [place] [employer], [employer] [employer], and NCCN Guidelines advise the consideration of Breast MRI as an adjunct to screening mammog philip in patients whose "Lifetime risk to develop breast cancer" is 20% or higher. This exam was interpreted at Station ID: [id number]. NOTE: For mammograms, a report in lay terms will be sent to the patient. Approximately 15% of breast malignancies will not be visualized mammographically. In the management of a palpable breast mass, a negative mammogram must not discourage biopsy of a clinically suspicious lesion. Electronically Signed By: Markus iqbal/nakia:12/31/2022 17:23:21 letter sent: No_Letter ACR BI-RADS Category 1: Negative 3341F PARENCHYMAL PATTERN: (VD) - The breast(s) demonstrate(s) extremely dense parenchyma, limiting the sen sitivity of mammography. BI-RADS CATEGORY: (1) - 1 Mammogram [id number] 1 year screening LATERALITY: (B)
== END 2022-12-27 10:45 | disposition home or self-care (01) ==
LOC: DI.N 10:44
PROVIDERS: ATTEND Nurse Practitioner
DX: Z12.31 Encounter for screening mammogram for malignant neoplasm of breast (principal)

== ENCOUNTER 2023-09-19 10:20 | Outpatient (CLI) | payer OTHER ==
[2023-09-19 10:37] LABS: BASOPHILS % (AUTO) 0.3 %; EOSINOPHILS # (AUTO) 0.1 10^3/uL (0.0-0.7); EOSINOPHILS % (AUTO) 1.3 %; HCT - HEMATOCRIT 42.7 % (37.0-47.0); HGB - HEMOGLOBIN 13.9 g/dL (12.0-16.0); LYMPHOCYTES # (AUTO) 1.6 10^3/uL (1.5-3.5); LYMPHOCYTES % (AUTO) 25.6 %; MEAN CORPUSCULAR HEMOGLOBIN 31.2 pg (27.0-31.0); MEAN CORPUSCULAR HGB CONC 32.6 g/dL (32.0-36.0); MEAN CORPUSCULAR VOLUME 95.7 fL (81.0-99.0); MEAN PLATELET VOLUME 9.6 fL (7.9-10.8); MONOCYTES # (AUTO) 0.4 10^3/uL (0.0-1.0); MONOCYTES % (AUTO) 5.8 %; NEUTROPHILS # (AUTO) 4.1 10^3/uL (1.5-6.6); NEUTROPHILS % (AUTO) 66.7 %; PLT - PLATELET COUNT 256 10^3/uL (130-450); RED BLOOD COUNT 4.46 10^6/uL (4.20-5.40); RED CELL DISTRIBUTION WIDTH 12.1 % (12.0-15.0); WHITE BLOOD COUNT 6.2 x10^3/uL (4.8-10.8)
[2023-09-19 10:51] LABS: ALBUMIN 4.7 g/dL (3.2-5.5); ALBUMIN/GLOBULIN RATIO 1.7 (1.0-2.2); ALKALINE PHOSPHATASE 47 IU/L (42-121); ALT ALANINE AMINOTRANSFERASE 12 IU/L (10-60); AST ASPARTATE AMINOTRANSFERASE 16 IU/L (10-42); BILIRUBIN,TOTAL 0.8 mg/dL (0.2-1.0); BUN - BLOOD UREA NITROGEN 13 mg/dL (6-20); CALCIUM 9.7 mg/dL (8.5-10.3); CARBON DIOXIDE - CO2 29 mmol/L (21-32); CHLORIDE 100 mmol/L (101-111); CREATININE 0.8 mg/dL (0.6-1.3); CRP - C-REACTIVE PROTEIN < 0.5 mg/dL (<0.5); GFR - MDRD 74 (>89); GLUCOSE 105 mg/dL (74-104); POTASSIUM 3.9 mmol/L (3.5-4.5); SODIUM 134 mmol/L (135-145); TOTAL PROTEIN 7.4 g/dL (6.4-8.9)
[2023-09-19 11:08] LABS: THYROID STIMULATING HORMONE 1.73 uIU/mL (0.34-5.60)
--- NOTE | 2023-09-19 11:28 | XRAY Report ---
PROCEDURE: Foot 1-2V LT INDICATIONS: LEFT FOOT PAIN TECHNIQUE: 2 views of the foot were acquired. COMPARISON: None. FINDINGS: Bones: No displaced fracture or dislocation. Possible mild posterior facet subtalar degenerative jonas ges. Soft tissues: No suspicious calcifications. IMPRESSION: No acute radiographic abnormality. If there is high concern for further derangement, consider MRI luis luation. Reviewed by: Frederick Swift MD on 09/19/2023 11:27 AM PDT Approved by: Frederick Swift MD on 09/19/2023 11:27 AM PDT Station ID: [id number]
== END 2023-09-19 10:21 | disposition home or self-care (01) ==
LOC: DI 10:20
PROVIDERS: ATTEND Nurse Practitioner
DX: M79.672 Pain in left foot (principal); R53.83 Other fatigue
CPT/HCPCS: 36415; 80053; 82607; 84439; 84443; 85025; 85651; 86140

== ENCOUNTER 2023-11-02 13:31 | Outpatient (CLI) | payer OTHER ==
--- NOTE | 2023-11-02 16:51 | XRAY Report ---
PROCEDURE: Chest 2V INDICATIONS: ACUTE COUGH TECHNIQUE: 2 views of the chest were acquired. COMPARISON: None. FINDINGS: Surgical changes and devices: None. Lungs and pleura: No pleural effusions or pneumothorax. Lungs are clear. Mediastinum: Mediastinal contours appear normal. Heart size is normal. Bones and chest wall: No suspicious bony lesions. Overlying soft tissues appear unremarkable. IMPRESSION: No acute cardiopulmonary process. Reviewed by: Bhargav Perez MD on 11/02/2023 4:49 PM PDT Approved by: Bhargav Perez MD on 11/02/2023 4:49 PM PDT Station ID: [id number]
== END 2023-11-02 13:32 | disposition home or self-care (01) ==
LOC: DI 13:31
PROVIDERS: ATTEND Physician Assistant Medical
DX: R05.1 Acute cough (principal)

== ENCOUNTER 2023-12-01 15:48 | Outpatient (CLI) | payer OTHER ==
--- NOTE | 2023-12-01 16:38 | Sleep Patient Instructions ---
Sleep Center Visit Summary - Patient Visit Information Reason for Visit: Initial consult for evaluation of sleep disordered breathing and other sleep issues. - Patient Instructions Instructions Attached: Sleep Study Home Monitor, Sleep Study Additional Instructions: You will be completing a sleep study, either an in-lab polysomnography (PSG) or home sleep study (HST). You will follow-up in the sleep care office after the sleep study is completed to hear the results and talk about therapy, if needed. You will be called by our office staff to schedule this appointment, but you may contact us with any questions. - Clinic Information Contact: [facility] [address] [place] [id number] [email or web address] T: [phone]
--- NOTE | 2023-12-01 16:43 | SLEEP CARE CONSULTATION ---
Information from patient questionnaire entered by Niyah Sal. I have reviewed and concur with the information entered by Niyah Sal. This document represents the service I personally performed and the decisions made by me, Mayra Escobar ARNP. History of Present Illness Service Date and Time: 12/01/2023 1548 Reason for Visit: New patient Chief Complaint: reports: Snoring, Fatigue, Other (reduced energy) Date of Onset: A FEW YRS Usual bedtime: 2200 Time it takes to fall asleep: NOT LONG Snores at night: Yes Observed to quit breathing while asleep: Yes Sleeps alone due to snoring: No Number of times waking at night: 0-1 Reasons for waking at night: reports: Snoring, Bathroom. denies: Choking, Gasping for air Toss, Turn, or Twitch while sleeping: Yes Recalls having dreams: No (rarely) Usually gets out of bed at: 0600 Feels refreshed in the morning: No Morning headache: No Sleepy or fatigued during the day: Yes Ever fallen asleep while driving: Yes (drowsy driving, no accidents) Takes day naps: Yes (daily for 15 minutes after lunch) Dreams during day naps: No Prior sleep studies: No Additional HPI information: I had the pleasure of seeing JOCELIN BURCH today regarding the possibility of her having a sleep disorder. Her current complaints are snoring, observed pauses in breathing, fatigue and unrefreshed sleep. She says since going through menopause she has been a lot more fatigued and sleepy during the day. She maintains a healthy weight and is using intermittent fasting. She says she feels a little more energy since using the intermittent fasting that she started in September. She says she knows she snores loudly and her will tell her he cannot hear her snoring from across the house. She also says he has told her that she stops breathing when sleeping. She will wake herself up from her own snoring. She does not wake up feeling refreshed. She says her mother has sleep apnea and is on a PAP machine. 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 Patient is and lives in . Have you smoked in the past 12 months: No Cigarettes per day (20/pack): 20 Years of smokin Quit date: 1994 Smoking Pack Years: 6.0 Alcohol use: Yes Alcohol amount and frequency: 2 GLASSES EVERYDAY Caffeine use: Yes Caffeine amount and frequency: 2 CUPS EVERYDAY Family History Family history of sleep disordered breathing: Yes Family Hx Sleep Apnea: Mother: Snoring, Sleep apnea - Treated Allergies and Home Medications Known drug allergies: No Drug allergies reviewed: Yes Home medication list reviewed: Yes (as listed) Allergy and home medication list: Allergies No Known Drug Allergies Allergy (Verified 11/28/23 14:53) Home Medications Medication Instructions Recorded Confirmed Last Taken Type Magnesium See Rx Instructions .ROUTE .COMPLEX 12/01/23 Unknown History Review of Systems Cardiovascular: denies: high blood pressure Gastrointestinal: reports: heartburn Neurological: denies: head trauma Ear/Nose/Throat: denies: injury to nose, tonsillectomy Musculoskeletal: reports: back pain Physical Exam Vital signs obtained and entered by: NIYAH Mabry MA Blood Pressure: 117/76 (RIGHT ARM) Cuff size: regular Heart Rate: 67 O2 Saturation: 100 Height: 5 ft 4 in Weight: 129 lb Body Mass Index: 22.1 BMI Classification: Normal Neck circumference: 13 Mouth and throat: narrow oropharynx Soft palate: long Hard palate: normal Uvula: normal Uvula visualization: 25% Mallampati Class III Tongue: enlarged in size with teeth taylor on lateral edges Tonsils: 1+ Neck: normal w/o lymphadenopathy or thyromegaly Heart: regular rate and rhythm Lungs: clear bilaterally Impression and Plan 1. Suspected Obstructive Sleep Apnea-Hypopnea Syndrome, as suggested by a history of loud and irregular snoring, observed cessation of breath while asleep, unrefreshed sleep, cognitive impairment, and excessive daytime sleepiness. Narrow oropharynx and obesity are common predisposing factors for obstructive sleep apnea-hypopnea syndrome. I recommend proceeding to polysomnography to confirm the diagnosis and to assess severity. If the patient has significant sleep disordered breathing, a manual CPAP titration study will also be performed to find the optimal treatment pressure. I informed the patient of what the sleep studies involve and after some discussion, obtained agreement to proceed. The pathophysiology of obstructive sleep apnea-hypopnea syndrome was discussed with the patient and health risks of cardiovascular and cerebrovascular disease if not treated. Risks of drowsy driving discussed in detail and patient advised to avoid long distance driving and to well puller head at the first sign of drowsiness. Patient agreed to plan. * Schedule polysomnography * Avoid long distance driving or driving when feeling sleepy. * Avoid alcohol, sedative and muscle relaxant around bedtime. * Review instructions provided by trained office staff on how to prepare for the sleep study. * Return for follow-up after sleep study completed. Plan: PSG/HST and follow up Visit Type: In Office Time Spent with Patient (minutes): 30 Provider Statement: I spent 100% of the Face to Face Visit with the patient with greater than 50% spent counseling the patient and coordination of care.
[2023-12-01 16:59] VITALS: BP 117/76; O2SAT 100
== END 2023-12-01 15:49 | disposition home or self-care (01) ==
LOC: SC 15:48
PROVIDERS: ATTEND Nurse Practitioner Family
DX: R06.83 Snoring (principal); R06.81 Apnea, not elsewhere classified; G47.8 Other sleep disorders; R41.89 Other symptoms and signs involving cognitive functions and awareness; G47.10 Hypersomnia, unspecified; R53.83 Other fatigue; Z87.891 Personal history of nicotine dependence
CPT/HCPCS: 99203; 99212

== ENCOUNTER 2024-02-24 10:08 | Outpatient (CLI) | payer OTHER ==
[2024-02-24 10:19] LABS: BASOPHILS % (AUTO) 0.7 %; EOSINOPHILS % (AUTO) 1.4 %; HCT - HEMATOCRIT 41.6 % (37.0-47.0); HGB - HEMOGLOBIN 13.6 g/dL (12.0-16.0); LYMPHOCYTES # (AUTO) 1.7 10^3/uL (1.5-3.5); LYMPHOCYTES % (AUTO) 56.4 %; MEAN CORPUSCULAR HEMOGLOBIN 30.9 pg (27.0-31.0); MEAN CORPUSCULAR HGB CONC 32.7 g/dL (32.0-36.0); MEAN CORPUSCULAR VOLUME 94.5 fL (81.0-99.0); MEAN PLATELET VOLUME 9.3 fL (7.9-10.8); MONOCYTES # (AUTO) 0.2 10^3/uL (0.0-1.0); MONOCYTES % (AUTO) 7.8 %; NEUTROPHILS % (AUTO) 33.4 %; PLT - PLATELET COUNT 229 10^3/uL (130-450); RED CELL DISTRIBUTION WIDTH 12.2 % (12.0-15.0)
[2024-02-24 10:32] LABS: ALBUMIN 4.3 g/dL (3.2-5.5); ALBUMIN/GLOBULIN RATIO 1.8 (1.0-2.2); ALKALINE PHOSPHATASE 38 IU/L (42-121); ALT ALANINE AMINOTRANSFERASE 15 IU/L (10-60); AST ASPARTATE AMINOTRANSFERASE 17 IU/L (10-42); BILIRUBIN,TOTAL 0.6 mg/dL (0.2-1.0); BUN - BLOOD UREA NITROGEN 18 mg/dL (6-20); CALCIUM 9.2 mg/dL (8.5-10.3); CARBON DIOXIDE - CO2 29 mmol/L (21-32); CHLORIDE 102 mmol/L (101-111); CHOL/HDL RATIO 2.6 (<4.4); CHOLESTEROL 229 mg/dL; CREATININE 0.7 mg/dL (0.6-1.3); GFR - MDRD 87 (>89); GLUCOSE 103 mg/dL (74-104); HDL CHOLESTEROL 89 mg/dL; LDL CHOLESTEROL,CALCULATED 119 mg/dL; LDL/HDL RATIO 1.3 (<4.4); POTASSIUM 4.3 mmol/L (3.5-4.5); SODIUM 135 mmol/L (135-145); TOTAL PROTEIN 6.7 g/dL (6.4-8.9); TRIGLYCERIDES 103 mg/dL; VLDL CHOLESTEROL 21 mg/dL
[2024-02-24 10:47] LABS: THYROID STIMULATING HORMONE 0.93 uIU/mL (0.34-5.60)
[2024-02-24 11:57] LABS: ESTIMATED AVERAGE GLUCOSE 105 mg/dL (70-100); HEMOGLOBIN A1c% 5.3 % (4.27-6.07)
== END 2024-02-24 10:09 | disposition home or self-care (01) ==
LOC: LAB 10:08
PROVIDERS: ATTEND Nurse Practitioner
DX: R53.83 Other fatigue (principal); Z13.220 Encounter for screening for lipoid disorders
CPT/HCPCS: 36415; 80053; 80061; 83036; 83721; 84443; 85025

== ENCOUNTER 2024-03-16 19:31 | Outpatient (CLI) | payer OTHER | END 2024-03-16 19:32 | disposition home or self-care (01) | LOC: SC 19:31 | PROVIDERS: ATTEND Nurse Practitioner Family | DX: R06.83 Snoring (principal); G47.10 Hypersomnia, unspecified; R53.83 Other fatigue; G47.8 Other sleep disorders; R06.81 Apnea, not elsewhere classified | CPT/HCPCS: 95810 ==

== ENCOUNTER 2024-03-29 14:30 | Outpatient (CLI) | payer OTHER ==
--- NOTE | 2024-03-29 14:48 | Sleep Patient Instructions ---
Sleep Center Visit Summary - Patient Visit Information Reason for Visit: Sleep study follow-up - Patient Instructions Instructions Attached: Snoring Tips Prevent Additional Instructions: Your sleep study today was negative for significant sleep disordered breathing. You were found to have episodes of snoring. There are different ways to control snoring including weight loss, oral devices made by a dentist or surgical options through ENT specialist. You should not use oral devices that do not fit properly because they can affect your bite. You should also check insurance coverage of oral devices for snoring because they may not be cover well. You may obtain a referral to an ENT specialist through your primary provider. Follow-up as needed. - Clinic Information Contact: [facility] [address] [place] [address] [email or web address] T: [phone]
--- NOTE | 2024-03-29 14:51 | SLEEP CARE CONSULTATION ---
Information from patient questionnaire entered by Radha Sal. I have reviewed and concur with the information entered by Radha Sal. This document represents the service I personally performed and the decisions made by , Mayra Escobar ARNP. History of Present Illness Service Date and Time: 03/29/2024 1430 Initial [place] Sleepiness Scale score: 16 (12/01/23) Current [place] Sleepiness Scale score: 20 (03/29/24) Additional HPI information: JOCELIN BURCH returns for follow up and results of the recently performed polysomnography done on 03/26/24. The patient was informed of the following findings: No significant sleep diso rdered breathing with an average AHI of 2.3 and priti oxygen saturation of 90%. I explained the pathophysiology behind obstructive sleep apnea. Patient does not have sleep apnea and was advised how weight gain could increase the risk of developing sleep apnea in the future. Patient has mild to loud snoring. Snoring can also be treated with an oral appliance from a dentist. Advised to check insurance coverage. In addition, an ENT evaluation can be do to see if other treatment is indicated. Patient counseled not drink alcohol less than 4 hours before bedtime as it can increase snoring and apnea. Patient was cautioned about risks of drowsy driving until sleepiness symptoms resolve. Patient denies drowsy driving. Sleep Study - Results Type of Sleep Study: Polysomnography (COMPLETED 03/16/24) Prior sleep studies: No Polysomnography/Home Sleep Study results: IMPRESSION: The quality of the study is good. The patient had normal sleep efficiency. The sleep architecture was also normal. Respiratory monitoring showed no significant sleep disordered breathing (AHI = 2.3) or hypoxia (priti oxygen saturation of 90%). The patient slept adequately in supine position (supine AHI = 2.1; non-supine = 2.58). Snore was light to loud in intensity. There was no significant periodic leg movement of sleep. Cardiac rhythm was normal sinus rhythm without significant arrhythmia. No abnormal behavior (parasomnia) observed during the night. Allergies and Home Medications Known drug allergies: No Drug allergies reviewed: Yes Home medication list reviewed: Yes (no changes) Allergy and home medication list: Allergies No Known Drug Allergies Allergy (Verified 03/29/24 14:36) Review of Systems Review of systems same as previous: Yes (NO CHANGE) Physical Exam Vital signs obtained and entered by: RADHA Mabry MA Blood Pressure: 123/75 (RIGHT ARM) Cuff size: regular Heart Rate: 77 O2 Saturation: 100 Height: 5 ft 4 in Weight: 132 lb 12.8 oz Body Mass Index: 22.8 BMI Classification: Normal Impression and Plan 1. Snoring but no significant sleep disordered breathing. Patient advised that an oral appliance can be used for snoring. This would require a dental consultation. Patient cautioned not to use other online appliances as can cause bite issues. Patient is advised to check if insurance will cover. An ENT consult can also be helpful to determine if any other treatment is an option. She voiced understanding and agreement with plan of care * Maintain healthy weight * Avoid alcohol consumption near bedtime * Return as needed for follow up. Counseling Topics: Weight control Follow up with Sleep Care in: as needed Visit Type: In Office Time Spent with Patient (minutes): 12 Provider Statement: I spent 100% of the Face to Face Visit with the patient with greater than 50% spent counseling the patient and coordination of care.
[2024-03-29 15:00] VITALS: BP 123/75; O2SAT 100
== END 2024-03-29 14:31 | disposition home or self-care (01) ==
LOC: SC 14:30
PROVIDERS: ATTEND Nurse Practitioner Family
DX: R06.83 Snoring (principal)
CPT/HCPCS: 99212